=== PATIENT | female | born 1975 | race Caucasian/White ===

== ENCOUNTER → 2017-12-03 12:10 | Outpatient (CLI) | payer OTHER, SELFPAY ==
--- NOTE | 2017-12-03 12:15 | RAD_ITS ---
STUDY: X-RAY - RIGHT SHOULDER REASON FOR EXAM: Female, 42 years old. Pain TECHNIQUE: 4 view(s) of the shoulder. COMPARISON: None. FINDINGS: Normal glenohumeral articulation. Normal acromioclavicular joint. Normal acromion. Normal humeral head and visualized proximal humerus. The soft tissue structures are unremarkable. Normal visualized pulmonary apex. RAD/Shoulder min 2 Views IMPRESSION: Normal x-ray examination of the shoulder. Electronically Signed: Munir Mcintyre MD at 13:44 EDT , Service support ,
== END ==
PROVIDERS: Family Provider Family Medicine; PCP Family Medicine; Visit Provider Family Medicine
DX: M25.511 Pain in right shoulder (principal)
CPT/HCPCS: 73030

== ENCOUNTER → 2018-01-28 19:50 | Outpatient (CLI) | payer OTHER, SELFPAY ==
[2018-02-03 11:27] LABS: HPV Reflexed? NOT INDICATED
== END ==
PROVIDERS: Visit Provider Obstetrics & Gynecology
DX: Z12.4 Encounter for screening for malignant neoplasm of cervix (principal)
CPT/HCPCS: 88175; G0145

== ENCOUNTER → 2020-09-07 17:59 | Outpatient (CLI) | payer OTHER, SELFPAY ==
[2017-09-30 16:40] VITALS: BMI 18.6
[2020-09-12 10:41] LABS: HPV Reflexed? NOT INDICATED
== END ==
PROVIDERS: PCP Family Medicine; Visit Provider Obstetrics & Gynecology
DX: Z12.4 Encounter for screening for malignant neoplasm of cervix (principal)
CPT/HCPCS: 88175; G0145

== ENCOUNTER → 2020-09-21 | Outpatient (CLI) | payer OTHER, SELFPAY | END | disposition home or self-care (01) | LOC: LABSPEC 09-22 10:57 | PROVIDERS: PCP Family Medicine; Visit Provider Family Medicine | DX: D48.5 Neoplasm of uncertain behavior of skin (principal) ==

== ENCOUNTER → 2023-09-09 | Outpatient (CLI) | payer OTHER, SELFPAY ==
--- NOTE | 2023-09-09 16:34 | BI_ITS ---
MAMMOGRAPHY - BILATERAL SCREENING REASON FOR EXAM: Female, 48 years old. Routine annual screening examination. PERTINENT HISTORY: Non-contributory. TECHNIQUE: Digital bilateral breast chris (3D mammographic acquisition) in the CC and MLO projections. 2-D mediolateral oblique (MLO) and craniocaudad (CC) views of both breasts were obtained. CAD: Full Field Digital Mammography with Computer Added Detection was performed. COMPARISON: None. Baseline examination. FINDINGS: Breast Composition: The breasts are heterogeneously dense, which may obscure small masses. There are no dominant masses or suspicious calcifications. No other significant abnormalities are identified. BI/SCRN MAMM (CAD)W/CHRIS BILAT IMPRESSION: Negative screening mammogram. Yearly followup mammogram recommended. (A) ASSESSMENT CATEGORY: BIRADS Category 1: Negative. A letter regarding these results will be sent to the patient by the facility within 30 days. Approximately 10% of breast cancers are not detected by mammography. A normal mammogram should not delay biopsy of a clinically suspicious abnormality. [id number] Electronically Signed: Ascencion Malone MD at 8:32 EDT ,
== END | disposition home or self-care (01) ==
LOC: OPBI 09-10 07:33
PROVIDERS: PCP Family Medicine
DX: Z12.31 Encounter for screening mammogram for malignant neoplasm of breast (principal)
CPT/HCPCS: 77063; 77067

== ENCOUNTER → 2023-09-15 | Outpatient (CLI) | payer OTHER, SELFPAY ==
[2023-09-15 11:01] LABS: Vitamin D,25 Hydroxy 32.7 ng/mL
[2023-09-15 11:32] LABS: Anion Gap 5 (5-15); BUN 9 mg/dL (7-18); BUN/Creat Ratio 14.4 RATIO (10-20); Calcium,Total 8.8 mg/dL (8.5-10.1); Chloride 107 mmol/L (98-107); Cholesterol 204 mg/dL (200); Creatinine, Serum 0.62 mg/dL (0.55-1.02); EST Glomerular Filtration Rate 109 mL/min (>60); Est Glom Filt Rate - Afr Amer 132 mL/min (>60); Glucose 87 mg/dL (74-106); High Density Lipoprotein 90 mg/dL; Potassium 3.9 mmol/L (3.5-5.1); Sodium Level 138 mmol/L (136-145); Triglycerides 35 mg/dL; Very Low Density Lipoprotein 7 mg/dL (5-40)
== END | disposition home or self-care (01) ==
LOC: MFPLAB 09:02
PROVIDERS: PCP Family Medicine; Visit Provider Family Medicine
DX: Z00.00 Encounter for general adult medical examination without abnormal findings (principal)
CPT/HCPCS: 36415; 80048; 80061; 82306

== ENCOUNTER 2024-02-05 09:59 | Day surgery (SDC) | payer OTHER, SELFPAY ==
[2024-02-05] VITALS (9 sets, daily range): BP systolic 92–120; BP diastolic 50–71; PULSE 71–98; RESP 16; TEMP 36.3–36.8; O2SAT 99–100; BMI 39.4
--- NOTE | 2024-02-05 | COLBX_PTH ---
PATIENT: KAT ALDRICH LOC: EN U#:[id number] AGE/SX: 48/F ROOM: RE02/05/[address]: Dr. Marcio Frye MD : 1975 BED: DIS: 02/05/2024 SPEC #: [id number] RECD: 02/05/24 13:43 STATUS: AUGUSTO RADHA #: [id number] ANAHI: 02/05/24 00:[address]: Marcio Frye DEPT: SURGICAL PATHOLOGY RECD BY: Toby Mccann ENTERED: 02/05/24 13:44 SP TYPE: COLON BX OTHR DR: Dr. Juan Siddiqui MD Tissues: Sigmoid colon biopsy Procedures: Surgery Specimen Level IV HEADER OPERATION: Colonoscopy, polypectomy PRE-OP DIAGNOSIS: Encounter for screening for malignant neoplasm of colon TISSUE SUBMITTED: Sigmoid polyp MICROSCOPIC DIAGNOSIS Sigmoid polyp, polypectomy: Tubular adenoma. AM. 02/06/2024 MICROSCOPIC DESCRIPTION Slides are reviewed. GROSS DESCRIPTION Received in fixative is one container labeled with the patient's name and designated Sigmoid polyp. The specimen consists of a magana-pink polyp measuring 1.0 x 0.5 x 0.3cm. The entire specimen is submitted in one cassette. 02/05/2024 TC:1 CPT:17639
--- NOTE | 2024-02-05 10:26 | PCM.PRE.AN2 ---
ASA Classification* ASA Classification ASA Classification: 2 Assessment & Plan Anesthesia* Anesthesia Assessment Anesthesia Assessment: Discussed sedation and/or anesthesia options, risks, benefits, and alternatives with patient/parents/legal guardian/POA. Questions invited. The patient/parents/legal guardian/POA seems to understand and agrees to proceed with anesthesia plan. Reviewed the physical assessment, medical history, allergy history and patient home medications list prior to surgery/procedure/anesthetic and documented any changes. Performed airway and anesthesia risk assessments. Anesthesia Type Anesthesia Type: MAC (see written pre anesthesia record for full assessment) Anesthesia Focused Assessment* Airway Assessment Mouth opens: >3 cm Mallampati Score: II Focused Labs Anesthesia Preop lab: CBC WBC 8.2 K/mm3 (4.4-11.0) 08/15/13 04:40 RBC 4.06 M/mm3 (4.2-5.4) L 08/15/13 04:40 Hgb 11.1 g/dl (12.0-15.0) L 08/15/13 04:40 Hct 33.4 % (37-47) L 08/15/13 04:40 Plt Count 292 K/mm3 (150-450) 08/15/13 04:40 CHEMISTRY Potassium 3.9 mmol/L (3.5-5.1) 09/15/23 09:02 Sodium 138 mmol/L (136-145) 09/15/23 09:02 BUN 9 mg/dL (7-18) 09/15/23 09:02 Creatinine 0.62 mg/dL (0.55-1.02) 09/15/23 09:02 Glucose 87 mg/dL (74-106) 09/15/23 09:02 COAG Urine Test Pending 02/05/24 10:15 Pre-Assessment Diagnosis/Proposed Procedure Planned Operative Procedure(s): COLONOSCOPY-OA Anesthesia History Anesthesia History - superintendent meters: Anesthesia History - superintendent meters Hx Hospitalization No 02/02/24 09:34 Any Problems With Anesthesia No 02/02/24 09:34 Cholinesterase deficiency No 02/02/24 09:34 You/Your Family Experience No 02/02/24 09:34 fever (hyperthermia) with Relationship Recent Exposure to Contagious Disease Does patient have nerve No 02/02/24 09:34 stimulator Patient instructed to have device shut off --Does patient have Pacemaker or ICD? When Was Last Pacemaker Check QUESTION #4 FULL TEXT: You/Your Family Experience fever (hyperthermia) with Anesthesia Last Oral Intake Last Oral intake: Last Oral Intake NPO since Meds taken in AM with sips of water? Meds patient instructed to take am of surgery PONV PONV - superintendent meters: PONV - superintendent meters Female Yes 02/02/24 09:34 HX of Motion Sickness No 02/02/24 09:34 HX of N/V After Surgery No 02/02/24 09:34 Non-Smoker Yes 02/02/24 09:34 Duration of Surgery greater No 02/02/24 09:34 than 60 minutes Number of Risk Factors 2 02/02/24 09:34 PONV Score Moderate Risk 02/02/24 09:34 Height & Weight Height & Weight: Anesthesia: Height & Weight Height 5 ft 6 in 01/27/24 13:33 Respiratory Assessment Respiratory Assessment - superintendent meters: Respiratory Tract Infection Hx - superintendent meters Hx Respiratory Tract Infection No 02/02/24 09:34 STOP Sleep Apnea STOP Sleep Apnea - superintendent meters: STOP Sleep Apnea - superintendent meters Hx Hypertension No 02/02/24 09:34 Hx Sleep Apnea No 02/02/24 09:34 CPAP BIPAP Do you snore loudly (louder No 02/02/24 09:34 than talking or can be heard Do you often feel tired/ No 02/02/24 09:34 fatigued/ sleepy during daytime? Has anyone observed you stop No 02/02/24 09:34 breathing during sleep? STOP Results Negative 02/02/24 09:34 QUESTION #5 FULL TEXT : Do you snore loudly (louder than talking or can be heard through closed doors)? 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 Specify any problems Hx of Preganancy in last 3 No 02/02/24 09:34 Months Nurse Filling Out Transfusion VCHRISTIN 02/02/24 09:34 & Questions: Date: 02/02/24 02/02/24 09:34 Time: 09:35 02/02/24 09:34 Patient unable to answer at this time (ie. confused, unrespo /Reproduction History /Reproductive History - superintendent meters: /Reproductive Hx- superintendent meters Hx Now No 02/02/24 09:34 Gestational Age (in weeks): EDC: Hx Hx Para Hx Section SAB No 02/02/24 09:34 Active Medications Active Medications: Current Medications Generic Name Dose Route Start Last Admin Trade Name Freq PRN Reason Stop Dose Admin Lactated Ringer's 1,000 mls @ 15 mls/hr 02/05/24 10:15 IV .Q48H DELMIS 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
[2024-02-05] MEDS: Lactated Ringers 1,000 ML 15 ML IV (10:28)
[2024-02-05 10:37] LABS: Internal QC Validated? YES +Cl - CLEAR BKGD; Pregnancy, Urine Negative Negative; Record Kit Lot#,Urine Preg HCG0000772476
--- NOTE | 2024-02-05 11:27 | H&P.OPEN ---
HPI - General HPI Narrative KAT ALDRICH, is a 48 F who presents for screening colonoscopy. Patient has never had a colonoscopy in the past. She denies abdominal pain or blood in the stool. She denies family history of colon cancer. 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, 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 Smoking Status: Never smoker alcohol intake: never substance use type: does not use Past Medical/Surgical History Planned Operation Planned Operative Procedure(s): COLONOSCOPY-OA Previous Hospitalizations/Surgeries HX Hospitalizations: No Any Problems With Anesthesia: No You/Your Family Experience Fever (Hyperthermia) With Anes: No Cholinesterase deficiency: No Cardiovascular Hx Hypertension: No Respiratory Hx Sleep Apnea: No Hx Respiratory Tract Infection/Cold (presently): No Do You Snore Loudly (louder than talking or can be heard): No Do You Often Feel Tired/ Fatigued/ Sleepy Dring Daytime?: No Has Anyone Observed You Stop Breathing During Sleep?: No Result (for STOP score): Negative Smoking Status: Never smoker Neurological Does patient have nerve stimulator: No Reproduction : No Miscellaneous Recent Exposure to Contagious Disease: No Allergies Penicillins Allergy (Verified 02/05/24 10:25) PT UNSURE OF REACTION As an infant Discharge Is Pt Admitted From a Fpc, or a Fpc: No Vital Signs Vital Signs Vital Signs: 02/05/24 10:29 02/05/24 10:29 Temperature 98.2 F Temperature Source Temporal Pulse Rate 98 Respiratory Rate 16 Respiratory Pattern Normal Blood Pressure 120/71 Blood Pressure Mean 87 Blood Pressure Source Monitor Blood Pressure Position Sitting Blood Pressure Location Right Arm Pulse Ox 100 Oxygen Delivery Method Room Air Weight Weight: 244 lb 11.41 oz Body Mass Index (BMI) 39.4 Physical Exam Const alert and oriented x3 HEENT normocephalic Eyes PERRL Resp normal respiratory effort and normal air movement Cardio regular rate and regular rhythm GI soft to palpation, non-tender and non-distended Extremity normal to inspection Assessment & Plan Assessment/Plan (1) Encounter for screening for malignant neoplasm of colon: PLAN: I explained endoscopy in detail to the patient. I explained the risks including but not limited to stroke or heart attack with anesthesia, perforation of the GI tract, bleeding, infection. I explained that any of these could necessitate further emergency surgery. The patient understands and all questions were answered sufficiently. The patient wishes to proceed with procedure. Marcio Frye MD Pager: [facility] [address] [place] [address] [address] [place] [address] Office: Surgery Risks - Colonoscopy Risks Include but are not Limited To: Risks include but are not limited to: Bleeding, perforation requiring further surgery, inability to complete colonoscopy requiring barium enema.
--- NOTE | 2024-02-05 11:56 | OP.COLON_ITS ---
Patient Name: Mayuri Gracia Procedure Date: 02/05/2024 11:26 AM Date of : 1975 Age: 48 Procedure: Colonoscopy Indications: Screening for colorectal malignant neoplasm Providers: Marcio Frye MD Referring MD: Juan Siddiqui MD Medicines: Propofol per Anesthesia Patient Profile: This is a 48 year old female. Refer to note in patient chart for documentation of history and physical. Last Colonoscopy: none. The patient's first colonoscopy is today. Complications: No immediate complications. Procedure: Pre-Anesthesia Assessment: - Prior to the procedure, a History and Physical was performed, and patient medications and allergies were reviewed. The patient's tolerance of previous anesthesia was also reviewed. The risks and benefits of the procedure and the sedation options and risks were discussed with the patient. All questions were answered, and informed consent was obtained. Prior Anticoagulants: The patient has taken no anticoagulant or antiplatelet agents. After reviewing the risks and benefits, the patient was deemed in satisfactory condition to undergo the procedure. After I obtained informed consent, the scope was passed under direct vision. Throughout the procedure, the patient's blood pressure, pulse, and oxygen saturations were monitored continuously. The Colonoscope was introduced through the anus and advanced to the cecum, identified by appendiceal orifice and ileocecal valve. The colonoscopy was performed without difficulty. The patient tolerated the procedure well. The quality of the bowel preparation was good. The ileocecal valve, appendiceal orifice, and rectum were photographed. Scope In: 11:36:55 AM Scope Withdrawal Time 0 hours 2 minutes 7 seconds Scope Out: 11:49:08 AM Total Procedure Duration Time 0 hours 12 minutes 13 seconds Findings: A polyp was found in the sigmoid colon. The polyp was removed with a hot snare. Resection and retrieval were complete. The exam was otherwise without abnormality on direct and retroflexion views. Impression: - One polyp in the sigmoid colon, removed with a hot snare. Resected and retrieved. - The examination was otherwise normal on direct and retroflexion views. Recommendation: - Discharge patient to home. - Resume previous diet. - Continue present medications. - Await pathology results. - Repeat colonoscopy in 5 years for surveillance. Procedure Code(s): --- Professional --- 52167, 33, Colonoscopy, flexible; with removal of tumor(s), polyp(s), or other lesion(s) by snare technique Diagnosis Code(s): --- Professional --- Z12.11, Encounter for screening for malignant neoplasm of colon D12.5, Benign neoplasm of sigmoid colon CPT copyright 2021 [employer]. All rights reserved. The codes documented in this report are preliminary and upon diabetes physician review may be revised to meet current compliance requirements. Marcio Frye MD 02/05/2024 11:55:39 AM This report has been signed electronically. Number of Addenda: 0 Note Initiated On: 02/05/2024 11:26 AM
--- NOTE | 2024-02-05 11:56 | OP.CCLET_ITS ---
02/05/2024 Juan Siddiqui MD [address] [place] [address] Re : Colonoscopy procedure for Mayuri Samia Dear Dr. Siddiqui This procedure was performed on January. My impressions and recommendations are as follows: Impressions : - One polyp in the sigmoid colon, removed with a hot snare. Resected and retrieved. - The examination was otherwise normal on direct and retroflexion views. Recommendations : - Discharge patient to home. - Resume previous diet. - Continue present medications. - Await pathology results. - Repeat colonoscopy in 5 years for surveillance. My findings are described in the full procedure note, which is enclosed. If I can be of further assistance, please feel free to contact me at Doctor phone number(s): , Work: . Sincerely, Marcio Frye MD 02/05/2024 11:55:39 AM This report has been signed electronically.
--- NOTE | 2024-02-05 11:58 | PCM.POST.ANE ---
Anesthesia: Postop Eval I Current Vital Signs Temperature: 97.4 F Pulse Rate: 80 Blood Pressure: 97/55 Respiratory Rate: 16 Pulse Ox: 100 Oxygen Delivery Method: Room Air Assessment Airway patent: Yes Spontaneous unlabored respirations: Yes Mental status: Asleep nausea: No Vomiting: No Anesthesia Complication: No Fluid Hydration Crystalloid volume administer (ml): 800 Total IV fluid infused: 800 Progress Note Anesthesia document: Postop Eval 1 completed: Yes
--- NOTE | 2024-02-05 14:32 | PCM.POSTANE2 ---
Anesthesia Postop Eval I Sum Postop Eval Completion status Anesthesia document: Postop Eval 1 completed: Yes Anesthesia Postop Eval I Summary Anesthesia Postop Eval I Summary: Anesthesia Postop Eval I: Assessment Summary Airway patent Yes 02/05/24 11:59 [email or web address] Spontaneous unlabored Yes 02/05/24 11:59 [email or web address] respirations Mental status Asleep 02/05/24 11:59 [email or web address] nausea No 02/05/24 11:59 [email or web address] Vomiting No 02/05/24 11:59 [email or web address] Anesthesia Postop Eval I: Fluid Summary Crystalloid volume administer 800 02/05/24 11:59 [email or web address] (ml) Colloids volume administered ( ml) Blood Product volume administered (ml) Total IV fluid infused 800 02/05/24 11:59 [email or web address] Anesthesia Postop Eval I: Summary Notes Anesthesia Complication No 02/05/24 11:59 [email or web address] Anesthesia Complication Comment: Post-operative progress note Anesthesia: Postop Eval II Evaluation Mental status: Awake and Calm Pain Level: 0 nausea: No Vomiting: No Complications Anesthesia Complication: No
== END 2024-02-05 12:48 | disposition home or self-care (01) ==
LOC: EN 10:00 → AC 10:01
PROVIDERS: Anesthesiology; PCP Family Medicine; Referring Provider Family Medicine; Visit Provider Surgery
PROC: 0DJD8ZZ Inspection of Lower Intestinal Tract, Via Natural or Artificial Opening Endoscopic (ICD-10-PCS; CPT 45378; principal; 2024-02-05 10:55)
DX: Z12.11 Encounter for screening for malignant neoplasm of colon (principal); D12.5 Benign neoplasm of sigmoid colon
CPT/HCPCS: 45385; 81025; 88305; J7120; J2405

== ENCOUNTER → 2024-09-09 | Outpatient (CLI) | payer OTHER, SELFPAY ==
--- NOTE | 2024-09-09 13:43 | BI_ITS ---
EXAM: SCRN MAMM (CAD)W/CHRIS BILAT DATE: 09/09/2024 CLINICAL HISTORY: F, Age 49 y/o , SCREENING BREAST CANCER RISK ASSESSMENT: Has not been calculated. TECHNIQUE: Bilateral screening digital breast tomosynthesis with 2D and 3D images. Computer aided detection. COMPARISON: Prior exam(s) dated 09/09/2023. FINDINGS: TISSUE DENSITY: The breast tissue is heterogenously dense, which may obscure small masses. Bilateral Breast Mammographic Findings: There are no suspicious masses, suspicious clustered microcalcifications, architectural distortion or secondary signs of malignancy identified in either breast. Stable nodular densities are seen in both breasts. BI/SCRN MAMM (CAD)W/CHRIS BILAT IMPRESSION: OVERALL FINAL ASSESSMENT: BIRADS 1 NEGATIVE RECOMMENDATION: Routine annual follow-up in 1 Year A letter with findings and recommendations will be mailed to the patient. Reading Location: [id number]
== END | disposition home or self-care (01) ==
LOC: OPBI 13:42
PROVIDERS: PCP Family Medicine; Referring Provider Nurse Practitioner Women's Health; Visit Provider Nurse Practitioner Women's Health
DX: Z12.31 Encounter for screening mammogram for malignant neoplasm of breast (principal)
CPT/HCPCS: 77063; 77067